=== PATIENT | female | born 1960 | race Caucasian/White ===

== ENCOUNTER 2016-06-13 23:09 | Emergency (ER) | payer BC ==
[~2016-06-13] VITALS: Ht 142.2 cm; Wt 43.0 kg
[2016-06-14] MEDS ORDERED: ONDANSETRON 2 MG/ML (Z0FRAN) 2 ML VIAL IV ONE (00:05)
[2016-06-14] MEDS ORDERED: SODIUM CHLORIDE FLUSH 3 ML SYR IV ONE (00:10)
[2016-06-14] MEDS ORDERED: SODIUM CHLORIDE FLUSH 10 ML SYR IV PRN (00:10)
[2016-06-14 00:26] LABS: BASOPHILS % (AUTO) 0 % (0-2); EOSINOPHILS # (AUTO) 0.1 10^3uL; EOSINOPHILS % (AUTO) 1 % (0-4); LYMPHOCYTES # (AUTO) 0.4 X10^3; MEAN CORPUSCULAR HGB CONC 34.2 g/dL (31.0-37.0); MEAN CORPUSCULAR VOLUME 93 FL (80-100); MEAN PLATELET VOLUME 9.7 FL (6.0-9.5); MONOCYTES # (AUTO) 0.4 X10^3; MONOCYTES % (AUTO) 8 % (3-11); NEUTROPHILS # (AUTO) 4.3 X10^3; NEUTROPHILS % (AUTO) 82 % (51-67); PLATELET COUNT 210 10^3uL (150-450); WHITE BLOOD COUNT 5.15 10^3uL (4.0-11.0)
[2016-06-14 00:32] LABS: MEAN CORPUSCULAR HEMOGLOBIN 31.9 PG (26.0-34.0)
[2016-06-14] MEDS ORDERED: ACETAMINOPHEN SUSPENSION 160 MG/5 ML (TYLENOL) UDC PEG ONE (00:35)
[2016-06-14 00:36] LABS: ANION GAP 10.8 MEQ/L (3-15); TOTAL PROTEIN 7.3 g/dL (6.4-8.5)
--- NOTE | 2016-06-14 01:20 | NUR ---
RESP PANEL ORDERED BY DR PROCTOR AND RN OBTAINED THE SAMPLE
[2016-06-14] MEDS ORDERED: ED- ONDANSETRON ODT 4 MG (ZOFRAN) 4 TABLETS/BTL PO ONE (01:40)
--- NOTE | 2016-06-14 02:17 | NUR ---
pt discharged INSTRUCTIONS TO PT AND FOR THEM TO CALL IN AM FOR RESULTS OF RESPIRATORY PANEL.
[2016-06-14 02:18] VITALS: BP 141/79
== END 2016-06-14 02:19 | disposition home or self-care (01) ==
LOC: ED 23:11
DX: J06.9 Acute upper respiratory infection, unspecified (principal); J11.1 Influenza due to unidentified influenza virus with other respiratory manifestations
CPT/HCPCS: 36415; 71010; 80053; 83880; 85025; 86140; 87040; 87486; 87581; 87633; 87798; 96374; 99284; J2405; 99283